=== PATIENT | female | born 1985 | race Caucasian/White ===

== ENCOUNTER 2017-08-10 06:20 | Inpatient (IN) | payer OTHER ==
[2017-08-10 07:01] VITALS: BMI 28.5
[2017-08-10] MEDS ORDERED: ceFAZolin 2 GM in Sodium Chloride 0.9% 100 ML IVPB ONE (07:29)
[2017-08-10] MEDS ORDERED: Lactated Ringer's 1,000 ML IV SCH (07:30)
[2017-08-10] MEDS: Lactated Ringer's 1,000 ML IV SCH ×3 (07:30→19:45)
[2017-08-10] MEDS ORDERED: Oxytocin 30 units/LR 500ML 30 U/500 ML BAG IV SCH ×2 (07:30→15:05)
[2017-08-10 07:49] LABS: BASO % 0.3 % (0.0-2.0); EOS % 0.4 % (0.0-4.0); HEMOGLOBIN 12.1 g/dL (12.0-16.0); LYMPH % 22.3 % (20.0-40.0); MEAN CELL VOLUME 96.3 fl (81.0-99.0); MEAN CORPUSCULAR HEMOGLOBIN 31.8 pg (27.0-31.0); MEAN PLATELET VOLUME 9.9 fl (7.2-11.7); MONO # 0.5 K/uL (0.0-0.8); MONO % 5.9 % (0.0-10.0); NEUT # 6.4 K/uL (1.8-7.0); NEUT % 71.1 % (50.0-75.0); NRBC % 0.1 % (0.0-0.0); RBC 3.8 Mil/uL (3.80-5.20); RED CELL DISTRIBUTION WIDTH 13.4 % (11.5-14.5)
[2017-08-10 08:08] VITALS: O2SAT 99
[2017-08-10] MEDS ORDERED: Morphine 5 mg/10 ml preservative-free Inj(Duramorph) ONE (08:10)
[2017-08-10] MEDS ORDERED: Oxycodone/Acetaminophen 5/325 mg Tab PO PRN ×3 (10:34→15:05)
[2017-08-10] MEDS ORDERED: DiphenhydrAMINE 50 mg/ml Inj IVP PRN ×2 (11:01→15:05)
--- NOTE | 2017-08-10 11:13 | OBDS ---
DELIVERY PERSONNEL Delivery Doctor: Clarence Gutierrez MD (Annotations: Data stored by N on behalf of user) Scrub Nurse: Sadaf Green OBT Press Smith Helper: Doris Meier RN Anesthesiologist: Dr. Dyson Resident: Dr. Vivas OBR MATERNAL INFORMATION Delivery Anesthesia: Spinal Medications in Delivery: Pitocin 30 mu/500 ml, Pitocin 20 mu/1000 mL Estimated Blood Loss (ml): 800 Placenta Cultured: No Maternal Complications: Other Other Maternal Complications: LGA;Polyhydramnios Provider Comments: See operative report LABOR SUMMARY EDC: 08/17/2017 00:00 No. Babies in Womb: 1 Attempted: No Labor Anesthesia: None LABOR INFORMATION Reason for Induction: Not Applicable Oxytocin: N/A Antibiotics # of Doses: 1 Antibiotics Time of Last Dose: 934 Steroids Given: None Reason Steroids Not Administered: Not Applicable MEMBRANES Membranes Rupture Method: Artificial Rupture of Membranes: 08/10/2017 10:00 Length of Rupture (hrs): 0.13 Amniotic Fluid Color: Clear Amniotic Fluid Amount: Moderate Amniotic Fluid Odor: None STAGES OF LABOR Stage 3 hrs: 0 Stage 3 min: 1 CSECTION DELIVERY Primary Indication: Other Other Primary Indication: Macrosomia CSection Urgency: Elective CSection Incidence: Primary Labor: No Labor Elective: Elective CSection Incision: Lower Uterine Transverse BABY A INFORMATION Delivery Date/Time: 08/10/2017 10:08 Method of Delivery: Born in Route : No : N/A Forceps: N/A Vacuum Extraction: N/A Shoulder Dystocia : No SHOULDER DYSTOCIA BABY A Delivery Date/Time: 08/10/2017 10:08 PRESENTATION/POSITION BABY A Presentation: Cephalic Cephalic Presentation: Vertex Breech Presentation: N/A PLACENTA INFORMATION BABY A Placenta Delivery Time : 08/10/2017 10:09 Placenta Method of Delivery: Expressed Placenta Status: Delivered SCORES BABY A Heart Rate 1 min: >100 bpm Resp Effort 1 min: Good Cry Reflex Irritability 1 min: Cough or Sneeze or Pulls Away Muscle Tone 1 min: Active Motion Color 1 min: Body Center Line, Extremities Blue Resuscitation Effort 1 min: N/A SCORE 1 MIN: 9 Heart Rate 5 min: >100 bpm Resp Effort 5 min: Good Cry Reflex Irritability 5 min: Cough or Sneeze or Pulls Away Muscle Tone 5 min: Active Motion Color 5 min: Completely Center Line Resuscitation Effort 5 min: N/A SCORE 5 MIN: 10 INFORMATION BABY A Gestational Age at Delivery: 39.0 Gestational Status: Term Outcome : Liveborn Infant Condition : Stable Infant Sex: Male IDENTIFICATION/MEDS BABY A ID Band Number: [id number] ID Band Location: Left Leg; Left Arm Vitamin K Given : Not Given Erythromycin Given: Not Given WEIGHT/LENGTH BABY A Infant Birthweight (gms): 3885 Infant Weight (lb): 8 Weight (oz): 9 Infant Length Inches: 20.50 Length cms: 52.1 CORD INFORMATION BABY A No. 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
[2017-08-11] MEDS: Lactated Ringer's 1,000 ML IV SCH (04:41)
--- NOTE | 2017-08-11 07:27 | OP ---
PROCEDURE DATE: 08/10/17 PREOPERATIVE DIAGNOSIS: Primary section, maternal request. POSTOPERATIVE DIAGNOSIS: Primary section, maternal request. OPERATION PERFORMED: Primary low flap transverse section by Pfannenstiel skin incision. SURGEON: Miguel A Gutierrez MD SCANNING MANAGER: Luis Alberto Sandoval DO. He was helpful in creating exposure, obtaining hemostasis, delivering the infant, and closure of the patient, the procedure would not have been possible without his assistance. TYPE OF ANESTHESIA: Spinal. ANESTHESIA ADMINISTERED BY: Wicho Dyson MD ESTIMATED BLOOD LOSS: 800 mL. URINE OUTPUT: Interiano catheter put out approximately 200 mL of clear urine. INTRAVENOUS FLUID INTAKE: The patient received approximately 1500 mL of D5 LR intraoperatively. OPERATIVE FINDINGS: Male infant, Apgars 9 and 9, weighing g and normal uterus, tubes, and ovaries were identified. COMMENTS: The patient was counseled regarding the risks of vaginal delivery and the risk of delivery. After thorough discussion, the patient opted for primary section by maternal request. The patient was informed the risks, benefits, and alternatives to the each and the patient wishes for respective procedure. DESCRIPTION OF PROCEDURE: After informed consent was obtained, the patient was taken to the operating room where she was given spinal anesthesia. She was then prepped and draped in normal sterile fashion with leftward tilt. A Pfannenstiel skin incision was then made with the scalpel and carried down to the underlying layer of fascia with the Bovie. The fascia was nicked in the midline. The fascial incision was then extended laterally with the curved Francois scissors. The superior aspect of the fascial incision was then grasped with Dillon clamps, elevated up, and the rectus muscles were dissected off using both sharp and blunt dissection. Attention was then turned to the inferior aspect of the fascial incision, which in a similar fashion was grasped with Dillon clamps, elevated up, and the rectus muscles were dissected off using both sharp and blunt dissection. The rectus muscles were then in the midline. The peritoneum identified and entered sharply with the Metzenbaum scissors. The peritoneal incision was then extended superiorly and inferiorly with good visualization of the bladder. The bladder blade was inserted. The vesicouterine peritoneum was identified and entered sharply with the Metzenbaum scissors. The incision was then extended laterally and the bladder flap was created digitally. The bladder blade was inserted and a low-transverse incision was then made with the scalpel. The uterine incision was then extended laterally with bandage scissors. The head was then delivered atraumatically. The nose and mouth were suctioned with DeLee suction trap. The cord was clamped and cut and the was handed off to awaiting pediatricians. The placenta was then removed manually. The uterus was exteriorized and cleared off all clots and debris. The uterine incision was then repaired with 0 Vicryl in a running locked fashion. A second layer of the same suture was used to obtain an excellent hemostasis. The uterus was returned to the abdomen. The abdomen was then copiously irrigated. The gutters were cleared of all clots and debris. The irrigant was removed with the suction device. The incision was examined and hemostasis was noted. The peritoneum was then closed with 2-0 Vicryl in a running fashion. The muscle was reapproximated with 0 Vicryl in an interrupted fashion. The fascia was closed with 0 Vicryl in a running fashion. The skin was closed with 4-0 on a Mickey needle. All sponge, lap, needle, and instrument counts were correct x2 and the patient was taken to the recovery room in awake and stable condition. Miguel A Gutierrez MD
[2017-08-11 07:38] LABS: HEMOGLOBIN 9.6 g/dL (12.0-16.0); MEAN CELL VOLUME 97.5 fl (81.0-99.0); MEAN CORPUSCULAR HEMOGLOBIN 32.6 pg (27.0-31.0); MEAN CORPUSCULAR HGB CONC 33.4 g/dL (33.0-37.0); RBC 2.94 Mil/uL (3.80-5.20); RED CELL DISTRIBUTION WIDTH 13.5 % (11.5-14.5); WHITE BLOOD COUNT 10.5 K/uL (4.8-10.8)
[2017-08-11] MEDS: Multivitamin With Minerals Tab PO SCH (08:18)
[2017-08-11] MEDS ORDERED: Multivitamin With Minerals Tab PO SCH (09:00)
--- NOTE | 2017-08-11 10:56 | OBPPN ---
Datetime: 08/11/2017 10:50 PP Pain Prov: Within normal limits PP Nausea Prov: Denies PP Flatus Prov: Yes PP BM Prov: No PP Breasts Prov: Normal PP Heart Prov: Normal PP Lungs Prov: Normal PP Abdomen/Uterus Prov: Normal PP Lochia Prov: Normal PP Vulva/Perineum Prov: Normal PP CVA Tenderness Prov: Normal PP Extremities Prov: Normal PP Comments Phys Exam Prov: Incision clean, dry, intact uterus firm, below umbilicus No deep Tenderness bilaterally PP Impression Prov: Normal progression PP Plan Prov: Continue present management PP Progress Note Prov: Postoperative day #1 status post , patient recovering well Patient ambulate, out of bed Pain control Advance diet regular as tolerated Interiano catheter removed Postoperative CBC Venodyne's while in bed IP PP Procedures: None Vital Signs Provider PP: Reviewed; Within Normal Limits
[2017-08-11] MEDS: Oxycodone/Acetaminophen 5/325 mg Tab PO PRN ×2 (11:53→22:54)
[2017-08-12] MEDS: Multivitamin With Minerals Tab PO SCH ×2 (07:53→12:20)
--- NOTE | 2017-08-12 09:52 | OBPPN ---
Datetime: 08/12/2017 09:48 PP Pain Prov: Within normal limits PP Nausea Prov: Denies PP Flatus Prov: Yes PP BM Prov: No PP Breasts Prov: Normal PP Heart Prov: Normal PP Lungs Prov: Normal PP Abdomen/Uterus Prov: Normal PP Lochia Prov: Normal PP Vulva/Perineum Prov: Normal PP CVA Tenderness Prov: Normal PP Extremities Prov: Normal PP C/S Incision Prov: Normal PP Progress Prov: Normal PP Impression Prov: Normal progression PP Plan Prov: Continue present management PP Progress Note Prov: She feels fine. Amulating without difficulty. H/H 01/13 A: S/P C-secotin day 2 Anemia asymptomatic PLAN: anticipate discharge in AM Vital Signs Provider PP: Reviewed; Within Normal Limits
[2017-08-12] MEDS: Oxycodone/Acetaminophen 5/325 mg Tab PO PRN (12:23)
[2017-08-13] MEDS: Multivitamin With Minerals Tab PO SCH (08:04)
--- NOTE | 2017-08-13 08:40 | OBPPN ---
Datetime: 08/13/2017 08:15 PP Pain Prov: Within normal limits PP Nausea Prov: Denies PP Flatus Prov: Yes PP BM Prov: Yes PP Breasts Prov: Normal PP Heart Prov: Normal PP Lungs Prov: Normal PP Abdomen/Uterus Prov: Normal PP Lochia Prov: Normal PP Vulva/Perineum Prov: Normal PP CVA Tenderness Prov: Normal PP Extremities Prov: Normal PP Impression Prov: Normal progression PP Plan Prov: Discharge PP Progress Note Prov: She feels better today. +BM Assessment: POD 3/anemia asymptomatic PLAN: discharge home and follow up in 1-2w
--- NOTE | 2017-08-13 08:43 | OBDCSUM ---
Datetime: 08/13/2017 08:40 Discharged to, Provider: Home Follow up at, Provider: Payam Prieto Instr Activity: Normal activity Discharge Instructions, Provider: Routine instructions given Discharge Diagnosis, Provider: Term Delivered Follow up in weeks, Provider: 1-2w Contraception discussed, Prov: Yes Disch Activity Restrictions: No lifting; No sexual activity; Nothing in vagina - [place], tampon s, douche Contraception after Delivery: Undecided
[2017-08-13 19:08] VITALS: BP 121/80; PULSE 82; RESP 20; TEMP 98
== END 2017-08-13 11:03 | disposition home or self-care (01) | DRG 766 ==
LOC: H.EROB2 06:20 → H.L&D 07:01 → H.EROB2 07:20 → H.OB/GYN 14:00
PROVIDERS: ADMIT Obstetrics & Gynecology Gynecology; ATTEND Obstetrics & Gynecology Gynecology
PROC: 10D00Z1 Extraction of Products of Conception, Low, Open Approach (ICD-10-PCS; principal; 2017-08-10)
PROC: 4A1HXCZ Monitoring of Products of Conception, Cardiac Rate, External Approach (ICD-10-PCS; 2017-08-10)
DX: O40.3XX0 Polyhydramnios, third trimester, not applicable or unspecified (principal); Z37.0 Single live birth; O36.63X0 Maternal care for excessive fetal growth, third trimester, not applicable or unspecified; Z3A.39 39 weeks gestation of pregnancy